=== PATIENT | female | born 1980 | race Caucasian/White ===

== ENCOUNTER → 2016-08-16 | Outpatient (REF) | payer OTHER | LOC: M SFHCWAGY 08:34 | PROVIDERS: ATTEND Nurse Practitioner Women's Health | DX: Z01.419 Encounter for gynecological examination (general) (routine) without abnormal findings (principal); Z11.51 Encounter for screening for human papillomavirus (HPV) ==

== ENCOUNTER → 2016-12-17 | Outpatient (REF) | payer OTHER ==
[2016-12-17 17:59] LABS: MEAN CORPUSCULAR HEMOGLOBIN 29.3 pg (27.0-33.0); MEAN CORPUSCULAR HGB CONC 32.9 g/dl (32.0-36.5); MEAN CORPUSCULAR VOLUME 89.1 fl (80.0-96.0); RED CELL DISTRIBUTION WIDTH 12.8 % (11.5-14.5); WHITE BLOOD COUNT 5.5 K/mm3 (4.0-10.0)
[2016-12-17 18:38] LABS: ALBUMIN 3.8 GM/DL (3.2-5.2); ALBUMIN/GLOBULIN RATIO 1.19 (1.00-1.93); ALKALINE PHOSPHATASE 63 U/L (45-117); ALT/SGPT 17 U/L (12-78); ANION GAP 5 MEQ/L (8-16); AST/SGOT 14 U/L (15-37); BILIRUBIN,TOTAL 0.6 MG/DL (0.2-1.0); BLOOD UREA NITROGEN 11 MG/DL (7-18); CARBON DIOXIDE LEVEL 30 MEQ/L (21-32); CHLORIDE LEVEL 106 MEQ/L (98-107); CHOLESTEROL LEVEL 195 MG/DL (<200); CREATININE FOR GFR 0.99 MG/DL (0.55-1.02); GLOMERULAR FILTRATION RATE > 60.0 (>60); GLUCOSE, FASTING 83 MG/DL (70-105); POTASSIUM SERUM 4.6 MEQ/L (3.5-5.1); SODIUM LEVEL 141 MEQ/L (136-145); TRIGLYCERIDES LEVEL 57 MG/DL (<150)
== END ==
LOC: M SFHCLERA 11:13
PROVIDERS: ATTEND Family Medicine
DX: F31.30 Bipolar disorder, current episode depressed, mild or moderate severity, unspecified (principal); Z13.220 Encounter for screening for lipoid disorders

== ENCOUNTER → 2016-12-17 | Outpatient (CLI) | payer OTHER ==
--- NOTE | 2016-12-17 12:19 | REP ---
Clinical: Pain Technique: AP, lateral, bilateral oblique views right wrist . Findings: The carpal bones, surrounding osseous structures, soft tissues, and joint spaces are normal. There is no evidence for acute fracture or dislocation. No subcutaneous emphysema or radiodense foreign body. No overt degenerative changes are appreciated. Impression: Normal wrist series. Signed by Nilton Shi MD 12/17/2016 12:11 P
== END ==
LOC: M LRY 11:14
PROVIDERS: ATTEND Family Medicine
DX: M25.531 Pain in right wrist (principal); G56.01 Carpal tunnel syndrome, right upper limb

== ENCOUNTER → 2018-02-27 | Outpatient (REF) | payer OTHER | LOC: M SFHCLERA 09:31 | DX: L98.6 Other infiltrative disorders of the skin and subcutaneous tissue (principal); L85.8 Other specified epidermal thickening | CPT/HCPCS: 88305 ==

== ENCOUNTER → 2018-04-17 | Outpatient (CLI) | payer OTHER | LOC: M RAD 09:20 | DX: M25.531 Pain in right wrist (principal) | CPT/HCPCS: 73221 ==

== ENCOUNTER → 2019-09-05 | Outpatient (REF) | payer OTHER ==
[2019-09-05 18:33] LABS: BASO % 0.7 % (0.0-1.0); EOS # 0.1 10^3/uL (0.0-0.5); EOS % 1.5 % (0.0-3.0); HEMATOCRIT 40.1 % (36.0-47.0); MEAN CORPUSCULAR HEMOGLOBIN 28.6 pg (27.0-33.0); MEAN CORPUSCULAR HGB CONC 32.4 g/dl (32.0-36.5); MEAN CORPUSCULAR VOLUME 88.3 fl (80.0-96.0); MONO # 0.4 10^3/uL (0.0-0.8); MONO % 6.5 % (0.0-5.0); NEUTROPHILS # 2.9 10^3/uL (1.5-8.5); NEUTROPHILS % 54.1 % (36.0-66.0); PLATELET COUNT, AUTOMATED 220 10^3/uL (150-450); RED BLOOD COUNT 4.54 10^6/uL (4.00-5.40); WHITE BLOOD COUNT 5.4 10^3/uL (4.0-10.0)
[2019-09-05 18:47] LABS: BLOOD UREA NITROGEN 13 MG/DL (7-18); CALCIUM LEVEL 9.4 MG/DL (8.5-10.1); CARBON DIOXIDE LEVEL 30 MEQ/L (21-32); CHLORIDE LEVEL 107 MEQ/L (98-107); CREATININE FOR GFR 1.01 MG/DL (0.55-1.30); GLOMERULAR FILTRATION RATE > 60.0 (>58); GLUCOSE, FASTING 83 MG/DL (70-100); POTASSIUM SERUM 4.5 MEQ/L (3.5-5.1); SODIUM LEVEL 140 MEQ/L (136-145)
== END ==
LOC: M SFHCLERA 15:45
PROVIDERS: ATTEND Family Medicine
DX: Z87.898 Personal history of other specified conditions (principal); R07.9 Chest pain, unspecified

== ENCOUNTER → 2019-09-05 | Outpatient (CLI) | payer OTHER ==
--- NOTE | 2019-09-06 12:54 | REP ---
Clinical: Chest pain and palpitations . Comparison: 08/12/2010 . Technique: PA and lateral. Findings: The mediastinum and cardiac silhouette are normal. The lung mclean are clear and without acute consolidation, effusion, or pneumothorax. The skeletal structures are intact and normal. Impression: 1. No acute cardiopulmonary process. Electronically Signed by Nilton Shi MD 09/06/2019 12:46 P
== END ==
LOC: M LRY 15:57
PROVIDERS: ATTEND Family Medicine
DX: Z87.898 Personal history of other specified conditions (principal)

== ENCOUNTER → 2019-10-18 | Outpatient (CLI) | payer OTHER ==
--- NOTE | 2019-10-18 17:11 | REP ---
BILATERAL MAMMOGRAM WITH 3D TOMOSYNTHESIS, DIAGNOSTIC MAMMOGRAM RIGHT BREAST AND RIGHT BREAST ULTRASOUND: No family history of breast cancer. Mraia Ines Read lifetime risk of breast cancer 10.2%. No comparison study. Bilateral mammogram performed in the ML and CC projections with 3D tomosynthesis. Reportedly there is a palpable lump in the upper inner right breast, marked on the skin with a triangular marker. Additional spot compression views of that area are performed. The breast parenchyma is heterogeneously dense limiting the sensitivity of the mammogram. No definite mass is seen and there are no clustered microcalcifications. Real-time sonographic evaluation of the upper inner right breast performed at the site of the palpable lump demonstrates a hypoechoic nodule measuring approximately 1.5 x 1.0 x 1.6 cm. This may represent a complex cyst or solid nodule. There was not significant internal blood flow with Doppler evaluation. IMPRESSION: ACR 4 suspicious. No mammographic abnormalities detected. However, by ultrasound, at the site of the patient's palpable lump in the upper inner right breast, there is a hypoechoic nodule which may represent a complex cyst or solid nodule. Recommend ultrasound guided biopsy. BIRADS 4: BI-RADS/ACR category 4 mammogram. Suspicious Abnormality - biopsy should be considered. This mammogram was interpreted with the aid of an FDA-approved computer-aided detection system. The patient states she/he had a clinical breast exam in 10/18/2019. The patient letter being requested is M4.
--- NOTE | 2019-10-18 20:20 | REP ---
Clinical: Dysmenorrhea. Abnormally uterine bleeding. Technique: Transabdominal pelvic ultrasound with color Doppler evaluation of the ovaries. Findings: Bladder is normal and measures approximately 9.2 x 3.5 x 6.2 cm. Normal anteverted uterus measures 8.4 x 4.4 x 7.0 cm. Endometrial complex measures 8 mm thickness. No discrete uterine or endometrial abnormalities appreciated. The bilateral ovaries are normal in appearance and vascularity without torsion. Right ovary measures 3.2 x 2.4 x 2.7 cm (RI 0.60). Left ovary measures 3.0 x 1.9 x 2.1 cm (RI 0.40). No pelvic fluid or adnexal mass lesion. Impression: Normal pelvic ultrasound. Electronically Signed by Nilton Shi MD 10/18/2019 08:12 P
== END ==
LOC: M WHC 15:22
PROVIDERS: ATTEND Nurse Practitioner Women's Health
DX: Z12.31 Encounter for screening mammogram for malignant neoplasm of breast (principal); R92.8 Other abnormal and inconclusive findings on diagnostic imaging of breast; N94.6 Dysmenorrhea, unspecified; N92.0 Excessive and frequent menstruation with regular cycle
CPT/HCPCS: 76642; 76856; 77066; G0279

== ENCOUNTER → 2019-10-18 | Outpatient (REF) | payer OTHER | LOC: M SFHCWAGY 17:16 | PROVIDERS: ATTEND Nurse Practitioner Women's Health | DX: Z12.4 Encounter for screening for malignant neoplasm of cervix (principal) ==

== ENCOUNTER → 2019-11-07 | Outpatient (CLI) | payer OTHER ==
[~2019-11-07] MED LIST: LAMI25TA PO; OMEP40CA97 PO; XANA0.5T PO
[2019-11-07 16:06] VITALS: BP 108/76
--- NOTE | 2019-11-07 18:34 | ROOPDOC ---
[facility] Report Of Operation Report of Operation DATE OF PROCEDURE: 11/07/19 PREPROCEDURE DIAGNOSES: right breast mass, possible complex cyst POSTPROCEDURE DIAGNOSES: right breast mass PROCEDURE: Ultrasound guided right breast mass biopsy with clip placement and attempted aspiration SURGEON: Sadia Harrison CODING TECHNICIAN: ANESTHESIA: local anesthetic used ESTIMATED BLOOD LOSS: Approximately 1 mL. COMPLICATIONS: none REMARKS: clip is seen on post biopsy mammogram in expected location DESCRIPTION OF PROCEDURE: Lidocaine 1% LOT [id number] Expiration 09/2020 Sodium Bicarbonate 8.4% LOT [id number] Expiration 09/2020 Hydromark clip LOT [id number] Expiration 06/2022 Bx device: BARD [id number] x10 cm LOT HUEN 3 Expiration 08/2022 Informed consent was obtained. The most common risk and possible complications including bleeding, hematoma, bruising, infection, injury to surrounding structures were explained to the patient and she expressed understanding. Patient was taken to the procedure room and placed on the bed in the supine position with the right upper extremity placed above the head. Appropriate time out was done stating patients name, date of , and the procedure to be performed. The right breast was prepped and draped in the usual fashion. The ultrasound was used to confirm the location of the lesion in the right breast at 1:00 4 centimeters from the nipple. Plain Lidocaine 1% and 8.4% sodium bicarbonate 10:1 mix was used to numb the skin, the biopsy site and tissues along the anticipated biopsy tract. An 18 G needle was used to attempt aspiration of the lesion under ultrasound guidance as it was possible that the lesion represents a complex cyst. No fluid was able to be pulled out of the lesion despite the fact that the needle tip was placed in the middle of the lesion. The images were captures to document needle position. Next, we proceeded with right breast biopsy. Small skin incision was made with blade number 11. BARD Marquee 14G cannula with introducer ([id number]) was inserted through the incision and advanced under the ultrasound guidance to position immediately adjacent to the lesion. Next, the introducer was removed and BARD Marquee 14G biopsy device was places in the cannula. Pre-biopsy i maging, and post-biopsy imaging were captured. Five good core biopsies were taken at various levels of the lesion. Specimen was placed in formaldehyde, labeled with appropriate biopsy site and patients name, and sent to pathology for evaluation. Next, the biopsy device was withdrawn and a clip introducer was inserted into the biopsy site via the cannula. The Hydromark clip was deployed under direct vision. Post-clip placement image was captured. Manual pressure over the biopsy cavity and tract was held after the clip introducer was withdrawn. No bleeding was noted upon removal of the pressure. Post-biopsy mammogram of the right breast was obtained and showed clip in expected position. Postprocedural dressing was placed. Patient tolerated procedure well. Discharge instructions were discussed with the patient and she expressed understanding. SADIA HARRISON DO Nov 07, 2019 18:34
--- NOTE | 2019-11-08 09:23 | REP ---
DIGITAL DIAGNOSTIC UNILATERAL RIGHT BREAST MAMMOGRAPHY: Two views. HISTORY: Marker clip placement views. The patient is status post ultrasound-guided needle biopsy procedure. Superior and medial quadrant palpable lump corresponding to a hypoechoic nodules seen sonographically. Comparison mammography October 18, 2019 showed no mammographic abnormality. FINDINGS: CC and true mediolateral views of the right breast demonstrate a needle biopsy marker clip in the superior and medial quadrant posteriorly. No other mammographic finding. IMPRESSION: Post biopsy marker clip views show a clip in the superior medial quadrant of the right breast.
--- NOTE | 2019-11-08 09:28 | REP ---
FOCUSED RIGHT BREAST SONOGRAPHY: ULTRASOUND GUIDANCE. HISTORY: Right breast mass. FINDINGS: Sonographic guidance is provided to Dr. Sellers who performed right breast needle biopsy procedure and HydroMARK clip placement procedure.
== END ==
LOC: M WHCPRO 14:51
PROVIDERS: ATTEND Surgery
DX: D24.1 Benign neoplasm of right breast (principal); N60.21 Fibroadenosis of right breast

== ENCOUNTER → 2019-12-08 | Outpatient (CLI) | payer OTHER ==
[~2019-12-08] MED LIST changes: +PEPC1TAB5 PO; +ULTR50TA8 PO
== END ==
LOC: M LABSMTC 09:10
PROVIDERS: ATTEND Anesthesiology
DX: Z01.818 Encounter for other preprocedural examination (principal); Z11.59 Encounter for screening for other viral diseases

== ENCOUNTER 2019-12-11 07:50 | Day surgery (SDC) | payer OTHER ==
[~2019-12-11] VITALS: Ht 170.2 cm; Wt 70.3 kg
[~2019-12-11 07:50] MED LIST changes: -ULTR50TA8 PO
[2019-12-11] MEDS ORDERED: MIDAZOLAM INJ 2MG/2ML VIAL (J2250 PER 1MG) As Ordered ONE (08:22)
[2019-12-11] MEDS ORDERED: dexameTHASONE 4 MG/ML 1ML VIAL (J1100 PER 1MG) As Ordered ONE (08:22)
[2019-12-11] MEDS ORDERED: fentaNYL 250 MCG/5 ML INJECTION (J3010) As Ordered ONE (08:22)
[2019-12-11] MEDS ORDERED: LIDOCAINE 2% 100MG/5ML SDV (FOR ANES.) As Ordered ONE (08:23)
[2019-12-11] MEDS ORDERED: propofoL 200 MG/20 ML VIAL As Ordered ONE (08:23)
[2019-12-11] MEDS ORDERED: ACETAMINOPHEN 1000MG 100ML IV BTL (OFIRMEV) (J0131 PER 10MG) As Ordered ONE (08:23)
[2019-12-11] MEDS ORDERED: ONDANSETRON 4MG/2ML VIAL As Ordered ONE ×2 (08:23→11:31)
[2019-12-11 08:27] LABS: HEMATOCRIT 40.2 % (36.0-47.0); HEMOGLOBIN 13.6 g/dl (12.0-15.5); MEAN CORPUSCULAR HEMOGLOBIN 29.3 pg (27.0-33.0); MEAN CORPUSCULAR HGB CONC 33.8 g/dl (32.0-36.5); MEAN CORPUSCULAR VOLUME 86.6 fl (80.0-96.0); PLATELET COUNT, AUTOMATED 191 10^3/uL (150-450); RED BLOOD COUNT 4.64 10^6/uL (4.00-5.40)
[2019-12-11] MEDS ORDERED: LR 1,000 ML IV ONE (08:30)
[2019-12-11] MEDS ORDERED: HEPARIN SOD (PORCINE) 5000UNITS/ML VIAL (J1644 PER 1000UNITS) SQ ONE (08:30)
[2019-12-11] MEDS ORDERED: ceFAZolin SOD 2 GM in IV 1 EA IV ONE (08:30)
[2019-12-11 08:58] LABS: ALBUMIN 3.9 GM/DL (3.2-5.2); ALT/SGPT 38 U/L (12-78); BILIRUBIN,TOTAL 0.5 MG/DL (0.2-1.0); BLOOD UREA NITROGEN 11 MG/DL (7-18); CALCIUM LEVEL 8.9 MG/DL (8.5-10.1); CARBON DIOXIDE LEVEL 28 MEQ/L (21-32); CHLORIDE LEVEL 107 MEQ/L (98-107); GLOMERULAR FILTRATION RATE > 60.0 (>58); GLUCOSE, FASTING 85 MG/DL (70-100); POTASSIUM SERUM 3.6 MEQ/L (3.5-5.1); SODIUM LEVEL 140 MEQ/L (136-145); TOTAL PROTEIN 7.2 GM/DL (6.4-8.2)
[2019-12-11] MEDS ORDERED: ROCURONIUM BROMIDE 50 MG/5 ML VIAL As Ordered ONE (09:10)
[2019-12-11] MEDS ORDERED: BUPIVACAINE HCL 0.25% 30ML VIAL As Ordered ONE (09:15)
[2019-12-11] MEDS ORDERED: LIDOCAINE 1% SDV 30ML VIAL As Ordered ONE (09:15)
[2019-12-11] MEDS ORDERED: SUGAMMADEX SODIUM 500 MG/5 ML VIAL (BRIDION) As Ordered ONE (09:59)
[2019-12-11] MEDS ORDERED: METOCLOPRAMIDE INJ 10MG/2ML VIAL (J2765 PER 1) As Ordered ONE ×2 (10:09→11:31)
[2019-12-11] MEDS ORDERED: ePHEDrine SULFATE 25 MG/5 ML(5MG/ML) SYRINGE As Ordered ONE (10:26)
[2019-12-11] MEDS ORDERED: PHENYLephrine HCL 500 MCG/5 ML (100MCG/ML) SYRINGE (J2370) As Ordered ONE (10:26)
--- NOTE | 2019-12-11 10:39 | REP ---
Focused right breast sonography: History: Sonographic guidance. Needle wire localization procedure. Findings: Sonographic guidance is provided to Dr. Sellers who performed ultrasound-guided needle wire localization procedure. Electronically Signed by Donald Dowd MD 12/11/2019 10:31 A
[2019-12-11] MEDS ORDERED: ULTR50TA8 PO ×2 (11:32→11:35)
[2019-12-11] MEDS ORDERED: METOCLOPRAMIDE INJ 10MG/2ML VIAL (J2765 PER 1) IV PRN (11:45)
[2019-12-11] MEDS ORDERED: PERCOCET 5MG/325MG TAB PO PRN (11:45)
[2019-12-11] MEDS ORDERED: ONDANSETRON 4MG/2ML VIAL IV PRN (11:45)
[2019-12-11] MEDS ORDERED: fentaNYL 100 MCG/2 ML INJECTION (J3010) IV PRN (11:45)
[2019-12-11] MEDS ORDERED: LR 1,000 ML IV SCH (11:45)
[2019-12-11 13:24] VITALS: BP 113/66
--- NOTE | 2019-12-11 20:45 | ROOPDOC ---
[facility] Report Of Operation Report of Operation DATE OF PROCEDURE: 12/11/19 PREPROCEDURE DIAGNOSES: Right breast fibroepithelial lesion. POSTPROCEDURE DIAGNOSES: Right breast fibroepithelial lesion. PROCEDURE: Right breast excisional biopsy with Intra-Op wire placement. SURGEON: Sadia Harrison ELECTROSLAG WELDING MACHINE OPERATOR: ANESTHESIA: Gen. anesthetic was used. ESTIMATED BLOOD LOSS: Approximately 5 mL. COMPLICATIONS: None. REMARKS: Wire, nodule and the clip are identified in the specimen. DESCRIPTION OF PROCEDURE: INDICATIONS: Ms. Barrow is a 39-year-old woman who was found to have a right breast suspicious nodule on screening mammogram. This was evaluated with US and sonographic correlate was found. US guided biopsy of the nodule came back as fibroepithelial lesion. Excisional biopsy of the right breast was offered to the patient. She was medically cleared for surgery by her primary care doctor. Risks and possible complications of surgical procedure including bleeding, infection and injury to surrounding structures were explained to the patient and she wished to proceed. Consent was signed. My initials were placed on the operative site. Subcutaneous injection of 5000 units of heparin was done in Preop. DETAILS: Patient was taken to the operating room and placed on the operating room table. A sign in was called stating patients name, date of and the procedure to be done. Preoperative antibiotics were infused. Smooth induction of general anesthesia was done. Patients hands were extended on arm rests. Care was taken not to over extend the arms. Procedure was started with right breast intraop wire localization. Appropriate time out was done and patients name, date of , and the procedure to be done were confirmed. Right breast was cleaned by me. Intraoperative ultrasound was used again to confirm location of the Hydromark clip. Location of the clip was marked on the skin as well. 21 G Kopans Breast Lesion Localization Needle was used to place 25 cm wire through the lesion. The wire was placed next to the clip into the lesion. The images were captured confirming adequate placement of the localizing wire. Python Consultant assisted with the wire placement. Next, patients right breast and axilla were prepped and draped in the usual fashion. Care was taken not to displace the wire. Appropriate time out was done again prior second part of the procedure. Patients name, date of , and the procedure to be done were confirmed. Next, local anesthetic using 1% lidocaine and 0.25 % Marcaine 50/50 mix was injected at the site of planned periareolar incision. The incision was made with the scalpel. Subcutaneous skin flaps were raised and the guide wire was carefully pulled into the wound. Dissection was carries along the wire until the previously marked on the skin area of target lesion location was encountered. At this point, wider excision of the tissue surrounding the wire was done. The Hydromark clip was identified in the tissue with intraoperative hockey stick ultrasound probe. The end of the wire was identified with palpation. The excisional biopsy specimen was carefully removed from the breast keeping its proper orientation and moved to the back table where margins were marked with the surgical inking kit following the standard colors recommendations. Specimen was then placed on the grid and placed in [employer] Specimen Imaging System. The image revealed the wire, the nodule, and the Hydromark in the specimen. The specimen was labeled with patients name and right excisional biopsy and sent to pathology. Next, the wound was irrigated thoroughly and adequate hemostasis was assured. Additional local anesthetic was injected into surrounding tissues. space was approximated with 3-0 Vicryl. The dermis was closed with 3-0 Monocryl and skin was closed with 4-0 Monocryl. Surgical glue was placed over the incision. Patient emerged from the anesthesia without any problems. Fluffs were placed over the operative site and patients chest was wrapped snuggly in the CHANTALE wrap. Sponge and instrument counts were done and were correct. Patient tolerated procedure well and was taken to recovery unit in stable condition. SADIA HARRISON DO December 11, 2019 20:38
--- NOTE | 2019-12-12 08:44 | REP ---
SPECIMEN RADIOGRAPHY RIGHT BREAST: Single view. HISTORY: Fibroepithelial lesion. Comparison mammography November 07, 2019. FINDINGS: Specimen radiography demonstrates a needle localization wire adjacent to a fairly well-circumscribed 14 mm nodular opacity in the breast specimen. Adjacent to this and adjacent to the localization wire is a needle biopsy marker clip. Electronically Signed by Donald Dowd MD 12/12/2019 10:56 A
== END 2019-12-11 13:41 | disposition home or self-care (01) ==
LOC: M SDC 07:50
PROVIDERS: ATTEND Surgery
DX: N60.21 Fibroadenosis of right breast (principal); K21.9 Gastro-esophageal reflux disease without esophagitis; F41.9 Anxiety disorder, unspecified; F32.9 Major depressive disorder, single episode, unspecified; Z79.899 Other long term (current) drug therapy
CPT/HCPCS: 19125; 36415; 76942; 80053; 81025; 85027; 86850; 86900; 86901; 88305; J0131; J0690; J1100; J1644; J2250; J2370; J2405; J2765; J3010

== ENCOUNTER → 2020-10-20 | Outpatient (CLI) | payer OTHER ==
[~2020-10-20] MED LIST changes: +ULTR50TA8 PO
--- NOTE | 2020-10-20 14:25 | REPMRS ---
Patient History The patient states she had a clinical breast exam in November 2019. No known family history of cancer. Benign radio exam breast specimen of the right breast, December 11, 2019. Benign US guided breast biopsy. of the right breast, November 07, 2019. Digital Woman Screen Mammo: October 20, 2020 - Exam #: [id number] Bilateral CC and MLO view(s) were taken. Technologist: Vane Reaves, Technologist Prior study comparison: November 07, 2019, right breast diagnostic unilateral mammo performed at [facility]. October 18, 2019, diagnostic bilateral mammo performed at [facility]. FINDINGS: The breast tissue is heterogeneously dense. This may lower the sensitivity of mammography. The Volpara volumetric breast density category is: C. There is a moderate amount of heterogeneously dense fibroglandular tissue which is fairly symmetric. There is no interval development of dominant mass, architectural distortion, or grouped microcalcification typical of malignancy. There has been no change in the appearance of the mammogram from the prior studies. 3-D tomosynthesis shows no additional findings. Assessment: BI-RADS/ACR category 1 mammogram. Negative Mammogram. Recommendation Routine screening mammogram of both breasts in 1 year (for women over age 40). This patient's [facility] Lifetime Breast Cancer RIsk is estimated at 10.1%. This mammogram was interpreted with the aid of an FDA-approved computer-aided dectection system. Electronically Signed By: Chemo Dowd MD 10/20/20 0746
== END ==
LOC: M WHC 13:07
PROVIDERS: ATTEND Nurse Practitioner Women's Health
DX: Z12.31 Encounter for screening mammogram for malignant neoplasm of breast (principal)

== ENCOUNTER → 2021-09-01 | Outpatient (CLI) | payer OTHER ==
[~2021-09-01] MED LIST changes: +OMEP40CA4 PO; -OMEP40CA97 PO
== END ==
LOC: M WHC 13:48
PROVIDERS: ATTEND Surgery
DX: R92.8 Other abnormal and inconclusive findings on diagnostic imaging of breast (principal); N63.10 Unspecified lump in the right breast, unspecified quadrant; N64.4 Mastodynia
CPT/HCPCS: 76642; 77066; G0279

== ENCOUNTER → 2021-09-16 | Outpatient (REF) | payer OTHER ==
[~2021-09-16] MED LIST changes: +IBUP200C25 PO
== END ==
LOC: M SFHCWAGY 12:50
PROVIDERS: ATTEND Advanced Practice Midwife
DX: Z12.4 Encounter for screening for malignant neoplasm of cervix (principal); N93.0 Postcoital and contact bleeding; R87.610 Atypical squamous cells of undetermined significance on cytologic smear of cervix (ASC-US)
CPT/HCPCS: 87624; G0123

== ENCOUNTER → 2021-09-16 | Outpatient (CLI) | payer OTHER ==
[2021-09-16 09:05] VITALS: BP 130/84
== END ==
LOC: M WHCPRO 07:41
PROVIDERS: ATTEND Surgery
DX: N60.21 Fibroadenosis of right breast (principal)
CPT/HCPCS: 19083; 77065; 88305; G0279

== ENCOUNTER → 2022-03-16 | Outpatient (CLI) | payer OTHER | LOC: M WHC 10:20 | PROVIDERS: ATTEND Nurse Practitioner Women's Health | DX: D24.1 Benign neoplasm of right breast (principal); N64.4 Mastodynia | CPT/HCPCS: 76642; 77065; G0279 ==

== ENCOUNTER → 2023-01-25 | Outpatient (REF) | payer OTHER | LOC: M SFHCWAGY 18:13 | PROVIDERS: ATTEND Nurse Practitioner Family | DX: Z12.4 Encounter for screening for malignant neoplasm of cervix (principal) | CPT/HCPCS: 87624; G0123 ==

== ENCOUNTER → 2023-01-25 | Outpatient (CLI) | payer OTHER | LOC: M WHC 14:25 | PROVIDERS: ATTEND Nurse Practitioner Family | DX: Z12.31 Encounter for screening mammogram for malignant neoplasm of breast (principal) ==

== ENCOUNTER → 2024-02-06 | Outpatient (CLI) | payer OTHER | LOC: M WHC 08:53 | PROVIDERS: ATTEND Nurse Practitioner Family | DX: Z12.31 Encounter for screening mammogram for malignant neoplasm of breast (principal) ==

== ENCOUNTER → 2025-02-26 | Outpatient (CLI) | payer BC, OTHER | LOC: M WHC 14:16 | PROVIDERS: ATTEND Nurse Practitioner Family | DX: Z12.31 Encounter for screening mammogram for malignant neoplasm of breast (principal); R92.333 Mammographic heterogeneous density, bilateral breasts | CPT/HCPCS: 77063; 77067; 87624; G0123 ==

== ENCOUNTER → 2025-02-26 | Outpatient (REF) | payer BC ==
[2025-02-28 15:02] LABS: HPV APTIMA Not Detected (Not Detected)
== END ==
LOC: M SFHCWAGY 18:12
PROVIDERS: ATTEND Nurse Practitioner Family
DX: Z12.4 Encounter for screening for malignant neoplasm of cervix (principal)
CPT/HCPCS: 87624; G0123

== ENCOUNTER → 2025-03-01 | Outpatient (CLI) | payer BC | LOC: M LAB 10:27 | PROVIDERS: ATTEND Physician Assistant | DX: A69.20 Lyme disease, unspecified (principal) ==

== ENCOUNTER → 2025-04-26 | Outpatient (CLI) | payer BC ==
[2025-04-26 12:54] LABS: INR 0.93
[2025-04-28 00:46] LABS: T P ELECTROPHORESIS SO 7.2 g/dL (6.1-8.1)
== END ==
LOC: M RAD 10:49
PROVIDERS: ATTEND Ophthalmology Retina Specialist
DX: H35.82 Retinal ischemia (principal)

== ENCOUNTER → 2025-05-03 | Outpatient (CLI) | payer BC | LOC: M WHC 14:35 | PROVIDERS: ATTEND Physician Assistant | DX: R01.1 Cardiac murmur, unspecified (principal) ==

== ENCOUNTER → 2025-07-26 | Outpatient (CLI) | payer BC | LOC: M EKG 09:50 | PROVIDERS: ATTEND Internal Medicine Cardiovascular Disease | DX: H35.82 Retinal ischemia (principal); R42 Dizziness and giddiness; R94.31 Abnormal electrocardiogram [ECG] [EKG]; Z53.9 Procedure and treatment not carried out, unspecified reason ==